=== PATIENT | male | born 1990 | race Caucasian/White ===

== ENCOUNTER 2025-01-19 13:19 | Outpatient (CLI) | payer OTHER, SELFPAY ==
--- NOTE | 2025-01-19 14:30 | NEURO_ITS ---
Impression: # Complains of pain/swelling of both hands. Non-diabetic. ? # Subtle evolving Carpal Tunnel Syndrome. ? # No ulnar neuropathy. ? # Normal needle/EMG exam. Nerve Conduction Studies Anti Sensory Summary Table ?Stim Site NR Peak (ms) P-T Amp (?V) Site1 Site2 Delta-P (ms) Dist (cm) Beltran (m/s) Left Median Anti Sensory (2-3nd Digit) Wrist ? 3.2 64.8 Wrist 2-3nd Digit 3.2 14.0 44 Wrist ? 3.3 71.3 Wrist 2-3nd Digit 3.2 14.0 44 Right Median Anti Sensory (2-3nd Digit) Wrist ? 3.4 35.4 Wrist 2-3nd Digit 3.4 14.0 41 Wrist ? 3.4 38.6 Wrist 2-3nd Digit 3.4 14.0 41 Left Radial Anti Sensory (Base 1st Digit) Wrist ? 2.0 21.9 Wrist Base 1st Digit 2.0 0.0 Right Radial Anti Sensory (Base 1st Digit) Wrist ? 2.4 23.5 Wrist Base 1st Digit 2.4 0.0 Left Ulnar Anti Sensory (5th Digit) Wrist ? 2.7 31.1 Wrist 5th Digit 2.7 14.0 52 Right Ulnar Anti Sensory (5th Digit) Wrist ? 2.4 29.6 Wrist 5th Digit 2.4 14.0 58 Motor Summary Table ?Stim Site NR Onset (ms) O-P Amp (mV) Site1 Site2 Delta-0 (ms) Dist (cm) Beltran (m/s) Left Median Motor (Abd Poll Brev) Wrist ? 3.6 10.1 Elbow Wrist 4.3 26.0 60 Elbow ? 7.9 8.7 Right Median Motor (Abd Poll Brev) Wrist ? 3.8 2.5 Elbow Wrist 4.8 28.0 58 Elbow ? 8.6 5.0 Left Ulnar Motor (Abd Dig Minimi) Wrist ? 2.5 6.5 A Elbow Wrist 5.3 30.0 57 A Elbow ? 7.8 6.5 B Elbow Wrist 4.4 25.0 57 B Elbow ? 6.9 6.1 Right Ulnar Motor (Abd Dig Minimi) Wrist ? 2.5 7.0 A Elbow Wrist 5.1 29.0 57 A Elbow ? 7.6 6.2 B Elbow Wrist 4.0 23.0 58 B Elbow ? 6.5 6.1 F Wave Studies ?NR F-Lat (ms) L-R F-Lat (ms) Left Median (Mrkrs) (Abd Poll Brev) ? 29.06 0.59 Right Median (Mrkrs) (Abd Poll Brev) ? 28.47 0.59 Left Ulnar (Mrkrs) (Abd Dig Min) ? 28.75 0.16 Right Ulnar (Mrkrs) (Abd Dig Min) ? 28.59 0.16 EMG ?Side Muscle Nerve Root Ins Act Fibs Amp Dur Recrt Comment Right 1stDorInt Ulnar C8-T1 Nml Nml Nml Nml Nml Right Ext Indicis Radial (Post Int) C7-8 Nml Nml Nml Nml Nml Right Ext Digitorum Radial (Post Int) C7-8 Nml Nml Nml Nml Nml Right BrachioRad Radial C5-6 Nml Nml Nml Nml Nml Right PronatorTeres Median C6-7 Nml Nml Nml Nml Nml Right Abd Poll Brev Median C8-T1 Nml Nml Nml Nml Nml Right ABD Dig Min Ulnar C8-T1 Nml Nml Nml Nml Nml Right FlexPolLong Median (Ant Int) C7-8 Nml Nml Nml Nml Nml Right Abd Poll Long Radial (Post Int) C7-8 Nml Nml Nml Nml Nml Left 1stDorInt Ulnar C8-T1 Nml Nml Nml Nml Nml Left Ext Indicis Radial (Post Int) C7-8 Nml Nml Nml Nml Nml Left Ext Digitorum Radial (Post Int) C7-8 Nml Nml Nml Nml Nml Left BrachioRad Radial C5-6 Nml Nml Nml Nml Nml Left PronatorTeres Median C6-7 Nml Nml Nml Nml Nml Left Abd Poll Brev Median C8-T1 Nml Nml Nml Nml Nml Left ABD Dig Min Ulnar C8-T1 Nml Nml Nml Nml Nml MTDD
--- OUTSIDE RECORDS SUMMARY | 2025-01-19 14:52 | XMS_ITS | Continuity of Care Document ---
Author Organization [facility] Address [address] [place] [address] Phone Care Team Providers Care Heating Element Builder Name Role Phone Dev Lockett MD Unavailable Unavailable Allergies, Adverse Reactions, Alerts Substance Reaction Status Criticality No Known Allergies Active No Inform ation Medications Medication Instructions Dosage Effective Dates (start - stop) Status Comments Naprosyn 500 mg tablet take 1 tablet by oral route 2 times every day with food 500 MG - Active Procedures Procedure Date OFFICE/OUTPATIENT VISIT, [facility] Alcohol and/or drug screening 5 X-RAY EXAM, ANKLE, COMPLETE, MIN 3 VIEWS Results Test Name Date and Time Measure Units Reference Range Abnormal Flag Status Comments Panel Description: Ankle; Complete Final Document Ankle; Complete 1 [{Url}] <Url iRemMajorVers ion= 1.2 iRemMinorVers ion= 5.8 seq_no= [id number] template_name = PacsEx ><Pa ><![CDATA[h [email or web address] IntegrationPr ocessor.aspx? CMD=OPENSTUDY &ACCESSION=UT [id number]]]></ Path></Url> Final Advance Directives Directive Yes / No Effective Date File Name No Information Encounters Encounter Description Practice Location Reason(s) For Visit Diagnoses Date Provider Providers Copied on Encounter OFFICE/OUTPAT IENT VISIT, [facility] , [address], [place], [place], [address], tel:[phone] Urgent Care knot on back of neck under hair line (chief complaint)a nkle pain (chief complaint) Ankle painMass of skinScreening for alcoholism Levy Méndez. [address], [place], [place], [address], [place]. tel:[phone] Referring Provider: Dev Lockett, [address], [place], [address] . tel:[phone] Family History Family Member Type Diagnosis Age At Onset No Information Payers Payer name Insurance type Covered democrat ID Authoriza tijoyce(s) [facility] [id number] Social History Type Description Quantity Date Captured Comments Alcohol Use Details Unknown Caffeine Use Details Unknown Tobacco Use Status No Information Smoking Status No Information Sex Male Vital Signs Date / Time: Height Weight BMI Pulse Rate Blood Pressure Temperature Respiratory Rate Body Surface Area Head Circumference Head Circ. Percentile Wt./Ephraim. Percentile BMI percentile Pulse Ox Inhaled Ox 5:26 PM 69.00 in 102.285 kg (225.50 lbs) 33.3 0 kg/m eter (2) 57 /min 112/84 mm[Hg] 99.10 F 18 /min Chief Complaint And Reason For Visit From encounter dated '03/28/2015 17:15'. knot on back of neck under hair line (chief complaint). Description: Noted enlarging nontender dagoberto back of neck at hairline to left of midline, present over the last year, no discharge or vesicleor bleeding. Concerned. Does not have a PCP. ankle pain (chief complaint). Description: States rolled left ankle laterally about a month ago with initial pain and swelling. Better but not resolved, still with jamie swelling and painful at times with certain movements, no buckling or numbness or tingling. Left foot nontender without swelling. Rest of LLE otherwise okay with FROM and no pain. Not using any meds, OTC or Rx. Notreally resting it or using julisa wrap. Reason For Referral Reason For Referral No Information History Of Present Illness Encounter Date Complaint History Of Prese nt Illness ankle pain States rolled left ankle laterally about a month ago with initial pain and swelling. Better but not resolved, still with jamie swelling and painful at times with certain movements, no buckling or numbness or tingling. Left foot nontender without swelling. Rest of LLE otherwise okay with FROM and no pain. Not using any meds, OTC or Rx. Not really resting it or using julisa wrap. knot on back of neck under hair line Noted enlarging nontender mass on back of neck at hairline to left of midline, present over the last year, no discharge or vesicle or bleeding. Concerned. Does not have a PCP. Functional Status Date Functional Assessmen t Pain Score 4/10 Instructions Date Instruction Additional Infor mation No Information Assessments Type Assessment Date impression Left ankle films wit hout obvious fracture, avulsion fracture, or dislocation to my review; await full radiology report. Naprosyn Rx. Rest, julisa wrap, elevation. Needs to establish with a new PCP for f/u. Return/call as needed. assessment Ankle pain assessment Mass of skin impression Posterior neck. Prob able Lipoma. Reassurance, observation. Needs to establish with a PCP for f/u and probable referral to a General Surgeon for removal. Return/call as needed. assessment Screening for alcoholism 2014 Mental Status Date Cognitive Assessment Orientation - [place] ed to time, place, person, situation. Patient Care Teams Name Effective Dates (start - stop) Status Members No Information
--- OUTSIDE RECORDS SUMMARY | 2025-01-19 14:52 | XMS_ITS | Data Portability ---
Author Organization [place] [facility] [employer], Main Office Address [address] [place] [address] Assessment Encounter Date Assessment Date Assessment LastModified by Organization Details LastModified Time 12/13/2024 12/13/2024 34-year-old male presents for evaluation of his bilateral hands, right worse than left. He reports 2 years of swelling and pain, getting progressively worse. He has pain at night that he feels like he needs to shake out. It is worse at the end the day and feels like it was mostly around his thenar eminence. He currently rates the pain 7/10. He tried wearing a wrist brace while ago while working but that did not help. He has not tried any other treatments. Review of systems per patient questionnaire Physical exam: He has sensation intact to light touch, no tenderness over the thenar eminence where he primarily points to his pain. He says it is only towards the end of the day and at night. Negative Tinel's and Phalen's at the wrist. Negative Tinel's at the elbow. X-rays of the bilateral hands were reviewed, demonstrating no acute bony abnormality his history is suspicious for bilateral carpal tunnel syndrome especially his night pain and needing to shake his hands out. However he has no findings on exam today. We will send him for EMG to confirm the diagnosis. In the meantime, we will give him a course of anti-inflammator ies, carpal tunnel exercises, and also night splints for his carpal tunnel. We will see him back in 3 weeks after the EMG and this course of treatment. If he still has confirmed symptoms at that time, we would plan to do a cortisone injection, followed by a surgical discussion. He is in agreement with the plan. [email or web address] Not available 12/13/2024 11:00:58 Plan of Treatment Reminders Order Date Submit Date Provider Last Modified By Organization Details Last Modified Time Details Appointments None recorded. Lab None recorded. Referral None recorded. Procedures nerve conduction study/EMG, upper extremity (PROC) [address] (Cardiology & Emg), [address], [place], [address], 11:10:54 Surgeries None recorded. Imaging XR, hand, 3 or more view 2024 025 [email or web address], [address], [place], [address], 14:15:19 Medication Orders Mobic 15 mg tablet 2024 025 [id number], [address], [place], [place], [id number], 11:10:54 Patient TargetsNo targets recorded. Patient InstructionsNo instructions recorded. Reason for Referral None Reported. Results Created Date Observation Date Name Description Value Unit Range Abnormal Flag Note LastModifiedBy Organization Detail LastModifiedTime 12/14/19 25 XR, hand, 3 or more view No observ ation record ed. [email or web address] [facility] [address], [place], [address], 12/13/2024 09:33:51 Result Notes None recorded. Problems Name Problem SNOMED Code Status Onset Date Resolution Date Notes Provider Name and Address Organization Details Recorded Time Epidermoid cyst 428339940 Active Not Available [facility] 17:29:45 Pain of bilateral hands 8883441836266 9109 Active 2024 NAUN Nicole, [place] [facility] 09:34:13 Problem Notes None recorded. Procedures Surgical History None recorded. Imaging Results Imaging Date Name Status LastModified by Organiz ation Details LastModified Time 12/13/2024 XR, hand, 3 or more view completed [email or web address] [facility], [place], [address], 12/13/2024 09:33:51 Procedure Notes None recorded. Medical Equipment None Reported. Medications Name Sig Start Date Stop Date Status Note LastModified by Organization Details LastModified Time Mobic 15 mg tablet Take 1 tablet every day by oral route. 025 active Not Available Not Available Not Avai lable Vitals Date Recorded Body height Body mass index (BMI) Body weight Pain severity - 0-10 verbal numeric rating [Score] - Reported Provider Name and Address Organization Details Last Updated DateTime 12/13/2024 175.26 cm 35.4 kg/m2 795640.17 g 7 NAUN Nicole [place] - [facility] 12/13/2024 09:33:14 Social History Question Answer Notes LastModified by Organizat ion Details LastModified Time What Is Your Occupation? [id number] Information not available 12/11/2022 Sex: Unknown Functional Status None recorded. Mental Status None recorded. Family History Nothing Reported. Medical History No medical history recorded. Past Encounters Encounter ID Performer Location Encounter Start Date Encounter Closed Date Diagnosis/Indication Diagnosis SNOMED-CT Code Diagnosis ICD10 Code Diagnosis Note [id number] Dev Sanders MD [facility] [address] 12/13/2024 09:14:46 12/13/2024 10:51:15 Pain of bilateral hands 1141380994 [id number] M79.643 Health Concerns Section Related Observation LastModified by Organization Detai ls LastModified Time None Recorded Concern Status LastModified by Organization Details LastModified Time None Recorded Advance Directives Directive None Recorded Payers Encounter Date Sequence Insurance Name Policy Number Policy Garcia Covered Member ID Garcia Member ID Guarantor Name 12/13/2024 1 [facility] [id number] Smita Tran [id number] Hadley JohnsonFish arianne
== END 2025-01-19 13:20 | disposition home or self-care (01) ==
PROVIDERS: Visit Provider Orthopaedic Surgery
DX: M79.641 Pain in right hand (principal); M79.642 Pain in left hand
CPT/HCPCS: 95886; 95911